=== PATIENT | female | born 1960 | race African-American/Black ===

== ENCOUNTER 2024-11-11 10:15 | Outpatient (CLI) | payer MEDICARE | END 2024-11-11 10:16 | disposition home or self-care (01) | LOC: SCSBT 10:15 | PROVIDERS: ATTEND Student in an Organized Health Care Education/Training Program | DX: Z78.0 Asymptomatic menopausal state (principal); M81.0 Age-related osteoporosis without current pathological fracture | CPT/HCPCS: 77080 ==